=== PATIENT | female | born 1990 | race Caucasian/White ===

== ENCOUNTER 2020-12-14 07:16 | Inpatient (IN) | payer BC ==
[2020-12-14] MEDS ORDERED: Misoprostol 200 MCG Tab PO PRN (08:17)
[2020-12-14] MEDS ORDERED: Water For Irrigation,Sterile 1,000 ML Container IRR PRN (08:17)
[2020-12-14] MEDS ORDERED: Butorphanol 1 MG/ML SDV IVPUSH PRN (08:17)
[2020-12-14] MEDS ORDERED: Sodium Chloride 0.9% 2.5 ML Syringe FLUSH PRN (08:17)
[2020-12-14] MEDS ORDERED: Sodium Chloride 0.9% 10 ML Syringe FLUSH PRN (08:17)
[2020-12-14] MEDS ORDERED: Sodium Chloride 0.9% 10 ML SDV IV PRN (08:17)
[2020-12-14] MEDS ORDERED: Methylergonovine 0.2 MG/1 ML Amp IM PRN (08:17)
[2020-12-14] MEDS ORDERED: Carboprost Tromethamine 250 MCG/1 ML Amp IM PRN (08:17)
[2020-12-14] MEDS ORDERED: Tranexamic Acid 1,000 MG in Sodium Chloride 0.9% 100 ML IV PRN (08:17)
[2020-12-14] MEDS ORDERED: Ondansetron 4 MG/2 ML SDV IVPUSH PRN (08:17)
[2020-12-14] MEDS ORDERED: Nalbuphine 10 MG/1 ML Vial IVPUSH PRN (08:17)
[2020-12-14] MEDS ORDERED: Lidocaine 1% 50 ML MDV INJECT PRN (08:17)
[2020-12-14] MEDS ORDERED: Oxytocin/0.9 % Sodium Chloride 30 UNIT/500 ML BAG IV SCH (08:30)
[2020-12-14] MEDS: Lactated Ringers 1,000 ML IV SCH ×2 (08:40→09:20)
[2020-12-14] MEDS ORDERED: Ropivacaine HCl/PF 200 ML ONE (09:33)
--- NOTE | 2020-12-14 10:00 | PCM.PREANE ---
Preanesthetic Assessment - Anesthesia/Transfusion/Family Hx Anesthesia History: Prior Anesthesia Without Reaction Family History of Anesthesia Reaction: No Transfusion History: No Prior Transfusion(s) - Review of Systems General: No Symptoms Pulmonary: No Symptoms Cardiovascular: No Symptoms Gastrointestinal: No Symptoms Neurological: No Symptoms Other: Reports: None - Physical Assessment NPO Status Date: 12/14/20 NPO Status Time: 00:00 Height: 5 ft 5 in Weight: 170 lb ASA Class: 2 Mental Status: Alert & Oriented x3 Airway Class: Mallampati = 3 Dentition: Reports: Normal Dentition ROM/Head Extension: Full Lungs: Clear to Auscultation, Normal Respiratory Effort Cardiovascular: Regular Rate, Regular Rhythm - Lab Values: Laboratory Last Values WBC 10.99 K/uL (4.0-11.0) 12/14/20 08:30 RBC 4.06 M/uL (4.30-5.90) L 12/14/20 08:30 Hgb 12.7 g/dL (12.0-16.0) 12/14/20 08:30 Hct 36.8 % (36.0-46.0) 12/14/20 08:30 MCV 90.6 fL (80.0-98.0) 12/14/20 08:30 MCH 31.3 pg (27.0-32.0) 12/14/20 08:30 MCHC 34.5 g/dL (31.0-37.0) 12/14/20 08:30 RDW Std Deviation 42.5 fl (28.0-62.0) 12/14/20 08:30 RDW Coeff of Brittney 13 % (11.0-15.0) 12/14/20 08:30 Plt Count 211 K/uL (150-400) 12/14/20 08:30 MPV 12.10 fL (7.40-12.00) H 12/14/20 08:30 Nucleated RBC % 0.0 /100WBC 12/14/20 08:30 Nucleated RBCs # 0 K/uL 12/14/20 08:30 Membrane Rupture POSITIVE 12/14/20 07:53 SARS-CoV-2 RNA (BIGG) NEGATIVE (NEGATIVE) 12/14/20 07:53 - Allergies Allergies/Adverse Reactions: Allergies Allergy/AdvReac Type Severity Reaction Status Date / Time mold Allergy Difficulty Verified 11/30/18 23:11 Breathing - Blood Blood Available: Yes Product(s) Available: PRBC - Anesthesia Plan Pre-Op Medication Ordered: None - Acknowledgements Anesthesia Type Planned: Epidural Pt an Appropriate Candidate for the Planned Anesthesia: Yes Alternatives and Risks of Anesthesia Discussed w Pt/Guardian: Yes Pt/Guardian Understands and Agrees with Anesthesia Plan: Yes PreAnesthesia Questionnaire HEENT History: Reports: None Cardiovascular History: Reports: None Respiratory History: Reports: None Gastrointestinal History: Reports: GERD Genitourinary History: Reports: None [employer]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: Musculoskeletal History: Reports: Other (See Below) Other Musculoskeletal History: Stress fracture Neurological History: Reports: None Psychiatric History: Reports: None Endocrine/Metabolic History: Reports: None Hematologic History: Reports: None Immunologic History: Reports: None Oncologic (Cancer) History: Reports: None Dermatologic History: Reports: None - Past Surgical History HEENT Surgical History: Reports: Oral Surgery, Tonsillectomy - CURRENT (IN HOUSE) MEDS Current Meds: Current Medications Butorphanol Tartrate (Butorphanol 1 Mg/Ml Sdv) 1 mg IVPUSH Q1H PRN PRN Reason: Pain (severe 7-10) Carboprost Tromethamine (Carboprost Tromethamine 250 Mcg/1 Ml Amp) 250 mcg IM ASDIRECTED PRN PRN Reason: Post Hemorrhage Lactated Ringer's (Ringers, Lactated) 1,000 mls @ 150 mls/hr IV ASDIRECTED CECILIO Oxytocin/Sodium Chloride (Oxytocin 30 Unit/500 Ml-Ns) 30 unit in 500 mls @ 999 mls/hr IV TITRATE CECILIO Tranexamic Acid 1,000 mg/ (Sodium Chloride) 110 mls @ 660 mls/hr IV ONETIME PRN PRN Reason: Bleeding Lidocaine HCl (Lidocaine 1% 50 Ml Mdv) 50 ml INJECT ONETIME PRN PRN Reason: Laceration repair Methylergonovine Maleate (Methylergonovine 0.2 Mg/1 Ml Amp) 0.2 mg IM ASDIRECTED PRN PRN Reason: Post Hemorrhage Misoprostol (Misoprostol 200 Mcg Tab) 200 mcg PO ONETIME PRN PRN Reason: Post Hemorrhage Nalbuphine HCl (Nalbuphine 10 Mg/1 Ml Vial) 10 mg IVPUSH Q1H PRN PRN Reason: Pain (severe 7-10) Ondansetron HCl (Ondansetron 4 Mg/2 Ml Sdv) 4 mg IVPUSH Q4H PRN PRN Reason: Nausea/Vomiting Sodium Chloride (Sodium Chloride 0.9% 10 Ml Syringe) 10 ml FLUSH ASDIRECTED PRN PRN Reason: Keep Vein Open Sodium Chloride (Sodium Chloride 0.9% 2.5 Ml Syringe) 2.5 ml FLUSH ASDIRECTED PRN PRN Reason: Keep Vein Open Sodium Chloride (Sodium Chloride 0.9% 10 Ml Sdv) 10 ml IV ASDIRECTED PRN PRN Reason: IV Use Sterile Water (Water For Irrigation,Sterile 1,000 Ml Container) 1,000 ml IRR ASDIRECTED PRN PRN Reason: delivery Discontinued Medications Ropivacaine (Naropin 0.2%) Confirm Administered Dose 200 mls @ as directed .[facility] ONE Stop: 12/14/20 09:34 - Pre-Procedure Checklist Attending Provider Aware: Yes Chart Reviewed: Yes Consent Signed: Yes Labs Reviewed: Yes VS/FHR Reviewed: Yes Patient Identification Confirmation Method: Reports: Verbal Patient Pt an Appropriate Candidate for the Planned Anesthesia: Yes Alternatives and Risks of Anesthesia Discussed w Pt/Guardian: Yes - Procedure Procedure Start Date: 12/14/20 Procedure Start Time: 09:[address]: Reports: Blood Pressure, Heart Rate, SPO2 Functional IV: Yes Safety Measures: Reports: Patient Identified, Procedure Verified, Site Verified, Procedure Time Out Patient Position: Reports: Sitting Prep: Reports: Betadine x3, Sterile Drape Local Anesthetic: Reports: Intradermal Wheal w Lidocaine 1% Regional Placement Level: Reports: L3-4 Needle: Reports: 17 g Touhy Approach: Reports: Midline Technique: Reports: ELISHA Plastic Syringe Parasthesia: Reports: None Fluid Obtained: Reports: None Test Dose Time: 09:43 Test Dose Medication: Reports: Lidocaine 1.5% w Epinephrine 1:200,000 Test Dose Response: Reports: Negative Loading Dose Time: 09:41 Loading Dose Medication: bupivicaine 0.25% 10cc Loading Dose Patient Position: sitting Continuous Infusion Start Time: 09:45 Continuous Infusion Medication: ropivicaine 0.2% Continuous Infusion Rate: 16 Continuous Infusion PCS Bolus Option: 4 Continuous Infusion Lockout Dose (cc/hr): 32 Patient Position Post Placement: Reports: Vipul Ambrose/TOÑO VS and FHR Monitored in Unit Post Placement: Yes Procedure End Date: 12/14/20 Procedure End Time: 10:40
[2020-12-14] MEDS ORDERED: Ibuprofen 400 MG Tab PO PRN (13:07)
[2020-12-14] MEDS ORDERED: Bisacodyl 10 MG Supp RECTAL PRN (13:07)
[2020-12-14] MEDS ORDERED: Witch Hazel Medicated Pads 40/Jar TOP PRN (13:07)
[2020-12-14] MEDS ORDERED: oxyCODONE 5 MG Tab PO PRN (13:07)
[2020-12-14] MEDS ORDERED: Benzocaine/Menthol 20%-0.5% Spray 78 GM Cannister TOP PRN (13:07)
[2020-12-14] MEDS ORDERED: Acetaminophen 500 MG Tab PO PRN (13:07)
[2020-12-14] MEDS ORDERED: Lanolin 100% Cream 7 GM Tube TOP PRN (13:07)
--- NOTE | 2020-12-14 13:20 | PCM.OPNOTE ---
- General Post-Op/Procedure Note Date of Surgery/Procedure: 12/14/20 Operative Procedure(s): /IP Findings: Viable male APGARs 8, 9 weight pending. Spontaneous delivery intact placenta with 3V cord. Pre Op Diagnosis: 41 week IUP. Labor/SROM Post-Op Diagnosis: Same Anesthesia Technique: Epidural Primary Surgeon: Tory Argueta EBL in mLs: 250 Complications: none known Condition: Stable Free Text/Narrative:: Dictation [id number]
--- NOTE | 2020-12-14 14:44 | OR ---
SURGEON: Tory Argueta M.D. DATE OF PROCEDURE: 12/14/2020 PREOPERATIVE DIAGNOSES: 1. 41-week intrauterine . 2. Active labor, spontaneous rupture of membranes. POSTOPERATIVE DIAGNOSES: 1. 41-week intrauterine . 2. Active labor, spontaneous rupture of membranes. PROCEDURE: Spontaneous vaginal delivery with intact perineum. PRIMARY SURGEON: Tory Argueta M.D. ANESTHESIA: Epidural. ESTIMATED BLOOD LOSS: 250 mL. COMPLICATIONS: None known. FINDINGS: Viable male. scores of 8 at one minute and 9 at five minutes. Weight is pending. Spontaneous delivery, intact placenta, 3-vessel cord. DISPOSITION: Infant to nursery, mom in LDRP. PROCEDURE IN DETAIL: Roula is a 30-year-old, G3, P2, at 41 weeks' gestational age who presents this morning with leakage of fluid at approximately 2:30 a.m. She was found to be spontaneously ruptured and was found to be 6 cm. She was admitted, routine labs drawn. IV hydration was initiated. Upon evaluation a couple of hours later, she was still found to be approximately 6 cm with a forebag present. This was ruptured. Clear fluid was returned. She underwent regional anesthesia in the form of epidural, became more comfortable, and continued to progress through the late morning or early afternoon hours. Shortly before 1 p.m., there was a deceleration to the 60s which was resolved with positional changes and the patient was found to be complete, 100% effaced, +3 station. Therefore, she was placed in modified dorsal lithotomy position, prepped and draped in the usual aseptic manner. She was able to push and deliver the head atraumatically spontaneously followed by anterior shoulder, posterior shoulder, and remainder of body without difficulty. The oropharynx and nares were bulb suctioned. Cord was clamped x2 and cut after delay. Cord arterial, cord venous, and cord blood sampling was obtained. Light pressure was applied while the placenta was delivered spontaneously intact. Vigorous fundal massage was then applied while 30 units of Pitocin was delivered in 500 mL of IV fluid. Upon inspection of cervix, vaginal side wall, and perineum, these were found to be intact. Uterus remained firm. Sponge, instrument, and needle counts correct x2. The patient tolerated the procedure well overall. She will remain in LDRP, infant in nursery. SOLBSAR / MODL /[id number]
[2020-12-14] MEDS: Ibuprofen 800 MG Tab PO PRN (19:49)
[2020-12-14] MEDS: Docusate Sodium 100 MG Cap PO PRN (19:50)
[2020-12-14] MEDS: Acetaminophen 500 MG Tab PO PRN (23:15)
[2020-12-15] MEDS: Ibuprofen 800 MG Tab PO PRN ×2 (02:32→14:43)
[2020-12-15] MEDS: Acetaminophen 500 MG Tab PO PRN (07:34)
[2020-12-15 07:55] VITALS: BP 106/65; PULSE 82
--- NOTE | 2020-12-15 08:41 | PCM.PNPP ---
- General Info Date of Service: 12/15/20 Functional Status: Reports: Pain Controlled, Tolerating Diet, Ambulating, Urinating - Review of Systems General: Denies: Fever, Weakness, Fatigue Pulmonary: Denies: Shortness of Breath Cardiovascular: Denies: Chest Pain, Palpitations Gastrointestinal: Denies: Constipation Genitourinary: Denies: Dysuria, Frequency, Flank Pain Musculoskeletal: Denies: Neck Pain Skin: Reports: No Symptoms Neurological: Reports: No Symptoms Psychiatric: Reports: No Symptoms - General Info Date of Service: 12/15/20 - Patient Data Vital Signs - Most Recent: Last Vital Signs Temp 36.4 C 12/15/20 07:30 Pulse 82 12/15/20 07:30 Resp 16 12/15/20 07:30 BP 106/65 12/15/20 07:30 Pulse Ox 97 12/15/20 07:30 Weight - Most Recent: 77.111 kg Lab Results - Last 24 Hours: Laboratory Results - last 24 hr 12/14/20 12/14/20 12/14/20 Range/Units 07:53 08:30 08:30 WBC 10.99 (4.0-11.0) K/uL RBC 4.06 L (4.30-5.90) M/uL Hgb 12.7 (12.0-16.0) g/dL Hct 36.8 (36.0-46.0) % MCV 90.6 (80.0-98.0) fL MCH 31.3 (27.0-32.0) pg MCHC 34.5 (31.0-37.0) g/dL RDW Std Deviation 42.5 (28.0-62.0) fl RDW Coeff of Brittney 13 (11.0-15.0) % Plt Count 211 (150-400) K/uL MPV 12.10 H (7.40-12.00) fL Nucleated RBC % 0.0 /100WBC Nucleated RBCs # 0 K/uL Cord ABG pH (7.18-7.38) Cord ABG Base Excess (-10--2) Cord VBG pH (7.25-7.45) Cord VBG Base Excess (-10--2) SARS-CoV-2 RNA (BIGG) NEGATIVE (NEGATIVE) Blood Type O POSITIVE Antibody Screen NEGATIVE 12/14/20 12/15/20 Range/Units 12:48 05:56 WBC (4.0-11.0) K/uL RBC (4.30-5.90) M/uL Hgb 11.8 L (12.0-16.0) g/dL Hct 35.2 L (36.0-46.0) % MCV (80.0-98.0) fL MCH (27.0-32.0) pg MCHC (31.0-37.0) g/dL RDW Std Deviation (28.0-62.0) fl RDW Coeff of Brittney (11.0-15.0) % Plt Count (150-400) K/uL MPV (7.40-12.00) fL Nucleated RBC % /100WBC Nucleated RBCs # K/uL Cord ABG pH 7.378 (7.18-7.38) Cord ABG Base Excess -2.1 (-10--2) Cord VBG pH 7.384 (7.25-7.45) Cord VBG Base Excess -2.0 (-10--2) SARS-CoV-2 RNA (BIGG) (NEGATIVE) Blood Type Antibody Screen Med Orders - Current: Current Medications Acetaminophen (Acetaminophen 500 Mg Tab) 500 mg PO Q4H PRN PRN Reason: Pain (mild 1-3) Acetaminophen (Acetaminophen 500 Mg Tab) 1,000 mg PO Q4H PRN PRN Reason: Pain (mild 1-3) Last Admin: 12/15/20 07:34 Dose: 1,000 mg Documented by: Benzocaine/Menthol (Benzocaine/Menthol 20%-0.5% [place] 78 Gm Cannister) 78 gm TOP ASDIRECTED PRN PRN Reason: Perineal Comfort Measure Last Admin: 12/14/20 19:50 Dose: 1 spray Documented by: Bisacodyl (Bisacodyl 10 Mg Supp) 10 mg RECTAL ONETIME PRN PRN Reason: Constipation Butorphanol Tartrate (Butorphanol 1 Mg/Ml Sdv) 1 mg IVPUSH Q1H PRN PRN Reason: Pain (severe 7-10) Carboprost Tromethamine (Carboprost Tromethamine 250 Mcg/1 Ml Amp) 250 mcg IM ASDIRECTED PRN PRN Reason: Post Hemorrhage Docusate Sodium (Docusate Sodium 100 Mg Cap) 100 mg PO Q12H PRN PRN Reason: Constipation Last Admin: 12/14/20 19:50 Dose: 100 mg Documented by: Emollient Ointment (Lanolin 100% Cream 7 Gm Tube) 0 gm TOP ASDIRECTED PRN PRN Reason: Sore Nipples Last Admin: 12/14/20 19:50 Dose: 1 gm Documented by: Lactated Ringer's (Ringers, Lactated) 1,000 mls @ 150 mls/hr IV ASDIRECTED CECILIO Last Admin: 12/14/20 09:20 Dose: 150 mls/hr Documented by: Oxytocin/Sodium Chloride (Oxytocin 30 Unit/500 Ml-Ns) 30 unit in 500 mls @ 999 mls/hr IV TITRATE [facility] Last Admin: 12/14/20 12:54 Dose: 999 mls/hr Documented by: Tranexamic Acid 1,000 mg/ (Sodium Chloride) 110 mls @ 660 mls/hr IV ONETIME PRN PRN Reason: Bleeding Ibuprofen (Ibuprofen 400 Mg Tab) 400 mg PO Q4H PRN PRN Reason: Pain (mild 1-3) Ibuprofen (Ibuprofen 800 Mg Tab) 800 mg PO Q6H PRN PRN Reason: Pain (mild 1-3) Last Admin: 12/15/20 02:32 Dose: 800 mg Documented by: Lidocaine HCl (Lidocaine 1% 50 Ml Mdv) 50 ml INJECT ONETIME PRN PRN Reason: Laceration repair Methylergonovine Maleate (Methylergonovine 0.2 Mg/1 Ml Amp) 0.2 mg IM ASDIRECTED PRN PRN Reason: Post Hemorrhage Misoprostol (Misoprostol 200 Mcg Tab) 200 mcg PO ONETIME PRN PRN Reason: Post Hemorrhage Nalbuphine HCl (Nalbuphine 10 Mg/1 Ml Vial) 10 mg IVPUSH Q1H PRN PRN Reason: Pain (severe 7-10) Ondansetron HCl (Ondansetron 4 Mg/2 Ml Sdv) 4 mg IVPUSH Q4H PRN PRN Reason: Nausea/Vomiting Oxycodone HCl (Oxycodone 5 Mg Tab) 5 mg PO Q2H PRN PRN Reason: Pain (severe 7-10) Sodium Chloride (Sodium Chloride 0.9% 10 Ml Syringe) 10 ml FLUSH ASDIRECTED PRN PRN Reason: Keep Vein Open Sodium Chloride (Sodium Chloride 0.9% 2.5 Ml Syringe) 2.5 ml FLUSH ASDIRECTED PRN PRN Reason: Keep Vein Open Sodium Chloride (Sodium Chloride 0.9% 10 Ml Sdv) 10 ml IV ASDIRECTED PRN PRN Reason: IV Use Sterile Water (Water For Irrigation,Sterile 1,000 Ml Container) 1,000 ml IRR ASDIRECTED PRN PRN Reason: delivery Witch Stephanie (Witch Stephanie Medicated Pads 40/Jar) 1 pad TOP ASDIRECTED PRN PRN Reason: comfort care Last Admin: 12/14/20 19:50 Dose: 1 pad Documented by: Discontinued Medications Ropivacaine (Naropin 0.2%) Confirm Administered Dose 200 mls @ as directed .ROUTE .[facility] ONE Stop: 12/14/20 09:34 Last Admin: 12/15/20 01:32 Dose: Not Given Documented by: - Interaction Support Person: - Recovery Exam Fundal Tone: Firm Fundal Level: 2 Fingerbreadths Below Umbilicus Fundal Placement: Midline Lochia Amount: Scant Lochia Color: Rubra/Red Perineum Description: Intact, Minimal Bruising/Swelling Episiotomy/Laceration: None Bladder Status: Voiding Urinary Elimination: Voided - Exam General: Alert, Oriented Lungs: Normal Respiratory Effort Cardiovascular: Regular Rate, Regular Rhythm GI/Abdominal Exam: Normal Bowel Sounds, Soft Extremities: Pedal Edema (trace). No: Kobi's Sign Skin: Warm, Dry, Intact Neurological: No New Focal Deficit Psy/Mental Status: Alert, Normal Affect, Normal Mood - Problem List & Annotations (1) Vaginal delivery SNOMED Code(s): 074617938 Code(s): O80 - ENCOUNTER FOR FULL-TERM UNCOMPLICATED DELIVERY Status: Acute Current Visit: No - Problem List Review Problem List Initiated/Reviewed/Updated: Yes - My Orders Last 24 Hours: My Active Orders 12/14/20 Lunch Regular Diet [DIET] 12/14/20 13:07 Patient Status [ADT] Routine May Shower [RC] ASDIRECTED Notify Provider Vital Signs [RC] ASDIRECTED Up ad Yue [RC] ASDIRECTED Vital Signs [RC] PER UNIT ROUTINE Acetaminophen [Tylenol Extra Strength] 1,000 mg PO Q4H PRN Acetaminophen [Tylenol Extra Strength] 500 mg PO Q4H PRN Benzocaine/Menthol [Dermoplast Pain Relief 20%-0.5% [place]] 78 gm TOP ASDIRECTED PRN Docusate Sodium [Colace] 100 mg PO Q12H PRN Ibuprofen [Motrin] 400 mg PO Q4H PRN Ibuprofen [Motrin] 800 mg PO Q6H PRN Lanolin [Lansinoh HPA] See Dose Instructions TOP ASDIRECTED PRN bisacodyL [Dulcolax] 10 mg RECTAL ONETIME PRN oxyCODONE 5 mg PO Q2H PRN witch Stephanie [Tucks] 1 pad TOP ASDIRECTED PRN Assess Lochia [WOMSER] Per Unit Routine Assess Uterine Involution [WOMSER] Per Unit Routine Peripheral IV Discontinue [OM.PC] Routine 12/14/20 13:08 Ice Therapy [OM.PC] Per Unit Routine Perineal Care [OM.PC] Per Unit Routine Sitz Bath [OM.PC] Per Unit Routine 12/15/20 08:39 Ready for Discharge [RC] PER UNIT ROUTINE - Assessment Assessment:: PPD 1 status post - Plan Plan:: Doing well overall, VS are stable and lab reassuring. Would like to go home today. Discharge instructions reviewed. Follow up at [facility] 4 weeks. Discharge to home today.
[2020-12-15] MEDS: Docusate Sodium 100 MG Cap PO PRN (14:43)
== END 2020-12-15 18:45 | disposition home or self-care (01) | DRG 560 ==
LOC: MW.OBCHECK 07:16 → MW.OB 07:17 → MW.OBCHECK 08:17 → MW.OB 08:17 → OBSVTOIN 13:07 → MW.OB 12-15 05:13
PROVIDERS: ADMIT Obstetrics & Gynecology; ATTEND Obstetrics & Gynecology
PROC: 10E0XZZ Delivery of Products of Conception, External Approach (ICD-10-PCS; principal; 2020-12-14)
PROC: 3E0R3BZ Introduction of Anesthetic Agent into Spinal Canal, Percutaneous Approach (ICD-10-PCS; 2020-12-14)
DX: O48.0 Post-term pregnancy (principal); Z37.0 Single live birth; O99.62 Diseases of the digestive system complicating childbirth; K21.9 Gastro-esophageal reflux disease without esophagitis; Z20.822 Contact with and (suspected) exposure to COVID-19; Z3A.41 41 weeks gestation of pregnancy
CPT/HCPCS: 01967; 36415; 51702; 59025; 59409; 82803; 84112; 85014; 85018; 85027; 86592; 86850; 86900; 86901; A9270-GY; J2590; J2795; J7120; U0002